=== PATIENT | male | born 1950 | race Caucasian/White ===

== ENCOUNTER → 2017-07-08 | Outpatient (CLI) | payer OTHER ==
--- NOTE | 2017-07-08 09:12 | MR ---
EXAMINATION TYPE: MR angio head wo con DATE OF EXAM: 07/08/2017 8:32 AM COMPARISON: CT scan of the brain dated 05/29/2017. HISTORY: Cerebral aneurysm TECHNIQUE: Time of flight images focusing on the [place] of [place] were performed without contrast. FINDINGS: Right vertebral artery is mildly dominant. The right posterior communicating arteries visua lized. The left is not. Both ophthalmic arteries are visualized. There is normal arborization of the middle cerebral arteries. There is no sizable aneurysm. IMPRESSION: NORMAL MRI OF THE [place] OF [place].
--- NOTE | 2017-07-08 09:17 | MR ---
EXAMINATION TYPE: MR brain wo/w con DATE OF EXAM: 07/08/2017 8:51 AM COMPARISON: Previous CT scan of the brain dated 05/29/2017. HISTORY: Cerebral aneurysm / R94.02 Abnormal findings TECHNIQUE: Multiplanar, multiecho imaging of the brain was obtained with and without intravenous adm inistration of 7.5 mL intravenous Gadavist. FINDINGS: Midline structures are unremarkable. There is a normal craniocervical junction. Echoplanar diffusion imaging is normal. The orbits are unremarkable. There is no evidence of a CP angle mass lesion. There are scattered high signal FLAIR lesions in the subcortical white matter of both cerebral hemisp heres. These number approximately 7 in number. There is a questionable lesion in the right side of th e jane. This may, however, the artifactual. The largest lesion is in the parietal lobe on the left an d measures approximately 7.4 mm. There is no mass effect, midline shift or intracranial blood. Following the intravenous administration of gadolinium, I do not see evidence of abnormal enhancement . IMPRESSION: 1. NO ACUTE INTRACRANIAL ABNORMALITY. 2. SCATTERED, NONSPECIFIC HIGH SIGNAL FLAIR LESIONS IN THE SUBCORTICAL WHITE MATTER OF BOTH CEREBRAL HEMISPHERES. A DIFFERENTIAL DIAGNOSIS INCLUDES SMALL VESSEL DISEASE, DEMYELINATION, MIGRAINE HEADACHE S, HYPERTENSION AND LYME'S DISEASE.
== END | disposition home or self-care (01) ==
LOC: RADMRIMAIN 08:02
PROVIDERS: ATTEND Family Medicine
DX: L98.9 Disorder of the skin and subcutaneous tissue, unspecified (principal)
CPT/HCPCS: 70544; 70553; A9581

== ENCOUNTER 2019-12-16 08:45 | Emergency (ER) | payer OTHER ==
[2019-12-16 08:50] VITALS: RESP 18; TEMP 97.9
--- NOTE | 2019-12-16 08:59 | ED ---
General Adult HPI - General Chief complaint: Shortness of Breath Stated complaint: QUINCY Time Seen by Provider: 12/16/19 08:53 Source: patient Mode of arrival: ambulatory Limitations: no limitations - History of Present Illness Initial comments: Dictation was produced using [employer] dictation software. please excuse any grammatical, word or spelling errors. This patient was cared for during a federal and state declared state of emergency secondary to Covid 19 Chief Complaint: 69-year-old male with no significant comorbidities presents today with episode of dyspnea. History of Present Illness: 69-year-old 9 presents today with an episode of dyspnea. Patient states that for in the morning he felt like he couldn't breathe. He got up went out to get fresh air. Patient states he's been a poor sleeper. He states that however he has not had an episode like this recently patient states he feels well now. He has no pain complaints. He has remote history of smoking. Denies any history of blood clots. Patient has not taken medications. Patient has no pain complaints. The ROS documented in this emergency department record has been reviewed and confirmed by me. Those systems with pertinent positive or negative responses h ave been documented in the HPI. All other systems are other negative and/or noncontributory. PHYSICAL EXAM: General Impression: Alert and oriented x3, not in acute distress HEENT: Normocephalic atraumatic, extra-ocular movements intact, pupils equal and reactive to light bilaterally, mucous membranes moist. Cardiovascular: Heart regular rate and rhythm Chest: Able to complete full sentences, no retractions, no tachypnea, lungs clear to auscultation Abdomen: abdomen soft, non-tender, non-distended, no organomegaly Musculoskeletal: Pulses present and equal in all extremities, no peripheral ed ana maría, no tenderness to palpation over the calf, popliteal area or medial thigh Motor: no focal deficits noted Neurological: CN II-XII grossly intact, no focal motor or sensory deficits noted Skin: Intact with no visualized rashes Psych: Normal affect and mood ED course: 69-year-old malesignificant comorbidities presents today with chief complaint dyspnea. He states that the dyspnea was short-lived and occurred at 4 AM this morning. He has been feeling well otherwise vital signs upon arrival a re within acceptable limits. Patient is not hypoxic. He is not hypotensive or tachycardic. His lungs are clear to auscultation bilaterally. Patient's physical examination is benign. Does not appear to be any sort of acute distress. Laboratory evaluation obtained. CBC, metabolic panel, troponin , beta nitric peptide is unremarkable. Chest x-ray is nonacute. Patient reevaluated at bedside in stable medical condition. Patient clear for discharge advised to follow-up with primary care physician. - Related Data Home Medications Medication Instructions Recorded Confirmed Aspirin 81 mg PO DAILY 06/10/14 06/10/14 LORazepam [Ativan] 1 tab PO DIRECTED PRN 06/10/14 06/10/14 Allergies Allergy/AdvReac Type Severity Reaction Status Date / Time No Known Allergies Allergy Verified 12/16/19 08:50 Review of Systems ROS Statement: Those systems with pertinent positive or pertinent negative responses have been documented in the HPI. ROS Other: All systems not noted in ROS Statement are negative. Past Medical History Past Medical History: GERD/Reflux History of Any Multi-Drug Resistant Organisms: None Reported Past Surgical History: No Surgical Hx Reported Past Psychological History: Anxiety, Panic Disorder Smoking Status: Former smoker Past Alcohol Use History: Occasional Past Drug Use History: None Reported General Exam Limitations: no limitations Course Vital Signs 12/16/19 12/16/19 08:46 10:39 Temperature 97.9 F Pulse Rate 86 71 Respiratory 18 18 Rate Blood Pressure 141/71 135/85 O2 Sat by Pulse 97 97 Oximetry Medical Decision Making - Lab Data Result diagrams: 12/16/19 09:22 12/16/19 09:22 Lab Results 12/16/19 12/16/19 12/16/19 Range/Units 09:22 09:22 09:22 WBC 6.2 (3.8-10.6) k/uL RBC 4.89 (4.30-5.90) m/uL Hgb 14.5 (13.0-17.5) gm/dL Hct 43.8 (39.0-53.0) % MCV 89.6 (80.0-100.0) fL MCH 29.7 (25.0-35.0) pg MCHC 33.1 (31.0-37.0) g/dL RDW 12.7 (11.5-15.5) % Plt Count 254 (150-450) k/uL Neutrophils % 77 % Lymphocytes % 17 % Monocytes % 4 % Eosinophils % 1 % Basophils % 0 % Neutrophils # 4.8 (1.3-7.7) k/uL Lymphocytes # 1.0 (1.0-4.8) k/uL Monocytes # 0.3 (0-1.0) k/uL Eosinophils # 0.1 (0-0.7) k/uL Basophils # 0.0 (0-0.2) k/uL Sodium 138 (137-145) mmol/L Potassium 4.1 (3.5-5.1) mmol/L Chloride 104 (98-107) mmol/L Carbon Dioxide 26 (22-30) mmol/L Anion Gap 8 mmol/L BUN 16 (9-20) mg/dL Creatinine 0.89 (0.66-1.25) mg/dL Est GFR (CKD-EPI)AfAm >90 (>60 ml/min/1.73 sqM) Est GFR (CKD-EPI)NonAf 88 (>60 ml/min/1.73 sqM) Glucose 145 H (74-99) mg/dL Calcium 8.8 (8.4-10.2) mg/dL Total Bilirubin 0.7 (0.2-1.3) mg/dL AST 23 (17-59) U/L ALT 15 (4-49) U/L Alkaline Phosphatase 67 (38-126) U/L Troponin I <0.012 (0.000-0.034) ng/mL NT-Pro-B Natriuret Pep pg/mL Total Protein 7.2 (6.3-8.2) g/dL Albumin 3.9 (3.5-5.0) g/dL 12/16/19 Range/Units 09:22 WBC (3.8-10.6) k/uL RBC (4.30-5.90) m/uL Hgb (13.0-17.5) gm/dL Hct (39.0-53.0) % MCV (80.0-100.0) fL MCH (25.0-35.0) pg MCHC (31.0-37.0) g/dL RDW (11.5-15.5) % Plt Count (150-450) k/uL Neutrophils % % Lymphocytes % % Monocytes % % Eosinophils % % Basophils % % Neutrophils # (1.3-7.7) k/uL Lymphocytes # (1.0-4.8) k/uL Monocytes # (0-1.0) k/uL Eosinophils # (0-0.7) k/uL Basophils # (0-0.2) k/uL Sodium (137-145) mmol/L Potassium (3.5-5.1) mmol/L Chloride (98-107) mmol/L Carbon Dioxide (22-30) mmol/L Anion Gap mmol/L BUN (9-20) mg/dL Creatinine (0.66-1.25) mg/dL Est GFR (CKD-EPI)AfAm (>60 ml/min/1.73 sqM) Est GFR (CKD-EPI)NonAf (>60 ml/min/1.73 sqM) Glucose (74-99) mg/dL Calcium (8.4-10.2) mg/dL Total Bilirubin (0.2-1.3) mg/dL AST (17-59) U/L ALT (4-49) U/L Alkaline Phosphatase (38-126) U/L Troponin I (0.000-0.034) ng/mL NT-Pro-B Natriuret Pep 63 pg/mL Total Protein (6.3-8.2) g/dL Albumin (3.5-5.0) g/dL Disposition Clinical Impression: Dyspnea Disposition: HOME SELF-CARE Condition: Good Instructions (If sedation given, give patient instructions): Dyspnea (ED) Is patient prescribed a controlled substance at d/c from ED?: No Referrals: Eric Johnston Jr, DO [Family Provider] - 1-2 days Time of Disposition: 10:50
[2019-12-16 09:52] LABS: Basophils % (A) 0 %; Eosinophils # (A) 0.1 k/uL (0-0.7); Eosinophils % (A) 1 %; HCT 43.8 % (39.0-53.0); HGB 14.5 gm/dL (13.0-17.5); Lymphocytes % (A) 17 %; MCH 29.7 pg (25.0-35.0); MCHC 33.1 g/dL (31.0-37.0); MCV 89.6 fL (80.0-100.0); Mean Platelet Volume 6.9; Monocytes # (A) 0.3 k/uL (0-1.0); Monocytes % (A) 4 %; Neutrophils # (A) 4.8 k/uL (1.3-7.7); Neutrophils % (A) 77 %; Platelet Count 254 k/uL (150-450); RBC 4.89 m/uL (4.30-5.90); RDW 12.7 % (11.5-15.5); WBC 6.2 k/uL (3.8-10.6)
--- NOTE | 2019-12-16 09:55 | XR ---
EXAMINATION TYPE: XR chest 2V DATE OF EXAM: 12/16/2019 COMPARISON: 06/10/2014 HISTORY: 69 year-old male shortness of breath, dyspnea TECHNIQUE: PA and lateral views FINDINGS: The cardiomediastinal silhouette, aorta, and pulmonary vasculature are within normal limits. Lungs an d pleural spaces are clear. IMPRESSION: No acute cardiopulmonary process.
[2019-12-16 10:06] LABS: ALT 15 U/L (4-49); AST 23 U/L (17-59); African American GFR (CKD) >90 (>60 ml/min/1.73 sqM); Albumin 3.9 g/dL (3.5-5.0); Alkaline Phosphatase 67 U/L (38-126); Anion Gap 8 mmol/L; Blood Urea Nitrogen 16 mg/dL (9-20); Calcium 8.8 mg/dL (8.4-10.2); Carbon Dioxide 26 mmol/L (22-30); Chloride 104 mmol/L (98-107); Glucose 145 mg/dL (74-99); Non-African American GFR(CKD) 88 (>60 ml/min/1.73 sqM); Potassium 4.1 mmol/L (3.5-5.1); Sodium 138 mmol/L (137-145); Total Bilirubin 0.7 mg/dL (0.2-1.3); Total Protein 7.2 g/dL (6.3-8.2)
[2019-12-16 11:01] VITALS: BP 130/80; PULSE 72
== END 2019-12-16 10:57 | disposition home or self-care (01) ==
LOC: EC 08:45
DX: R06.00 Dyspnea, unspecified (principal); F41.9 Anxiety disorder, unspecified; Z79.899 Other long term (current) drug therapy; Z87.891 Personal history of nicotine dependence
CPT/HCPCS: 36415; 71046; 80053; 83880; 84484; 85025; 93005; 99285

== ENCOUNTER 2020-11-12 08:02 | Day surgery (SDC) | payer OTHER ==
[2020-11-10 11:01] VITALS: BMI 27.3
[~2020-11-12 08:02] MED LIST: LACTATED RINGERS 1,000 ML IV SCH
[2020-11-12 08:34] VITALS: TEMP 97.8
[2020-11-12] MEDS ORDERED: LIDOCAINE 1% (10MG/ML) FOR IV START INTRADERMA ONE (08:34)
[2020-11-12] MEDS ORDERED: PROPOFOL 10 MG/ML 20 ML VIAL IV ONE (09:22)
[2020-11-12 09:45] VITALS: PULSE 68
--- NOTE | 2020-11-12 09:51 | P.PCN ---
Date of Procedure: 11/12/20 Description of Procedure: BRIEF HISTORY: Patient is a 70-year-old male presenting for outpatient colonoscopy for screening for malignant neoplasm of the colon. Patient reports last colonoscopy over 10 years ago. No change in bowel habits. He does report occasional bright red blood per rectum. Bleeding is usually in association with straining with bowel movements. Patient is unclear about his family history, he states he may have a family history of colon cancer in his uncle otherwise no immediate family members with colon cancer. PROCEDURE PERFORMED: Colonoscopy with polypectomy. PREOPERATIVE DIAGNOSIS: Screening for malignant neoplasm of the colon, the patient was last colonoscopy over 10 years ago. ESTIMATED BLOOD LOSS: Minimal. IV sedation per Anesthesia. PROCEDURE: After informed consent was obtained, the patient, was brought into the endoscopy unit. IV sedation was administered by Anesthesia under continuous monitoring. Digital rectal examination was normal. Initially the Olympus CF-190 flexible video colonoscope was then inserted in the rectum, gradually advanced into the cecum without any difficulty. Careful examination was performed as the scope was gradually being withdrawn. Ileocecal valve and the appendiceal orifice were visualized and appeared normal. Prep was excellent. Mucosa of the cecum, ascending colon, transverse colon, descending colon, sigmoid colon, and rectum appeared normal. A diminutive 2 mm: Polyp was removed from the transverse colon with cold forcep polypectomy. A few scattered diverticula noted in the sigmoid colon. Retroflexion was performed in the rectum and no lesions were seen, moderate internal hemorrhoids noted. The patient tolerated the procedure well. IMPRESSION: Diminutive transverse colon polyp removed with cold forcep polypectomy. Mild sigmoid diverticulosis. Internal hemorrhoids. RECOMMENDATIONS: Findings of this examination were discussed with the patient .and his family. Okay to resume diet. Okay to resume medications. Await pathology from polypectomy. Recommend repeat colonoscopy in 7 years for colon polyp pending pathology from polypectomy.
[2020-11-12 10:01] VITALS: BP 125/86; RESP 16
== END 2020-11-12 10:15 | disposition home or self-care (01) ==
LOC: ORWHC2ENDO 08:02
PROVIDERS: ATTEND Internal Medicine
DX: Z12.11 Encounter for screening for malignant neoplasm of colon (principal); D12.3 Benign neoplasm of transverse colon; K57.30 Diverticulosis of large intestine without perforation or abscess without bleeding; K64.8 Other hemorrhoids; K62.5 Hemorrhage of anus and rectum; K21.9 Gastro-esophageal reflux disease without esophagitis; Z87.891 Personal history of nicotine dependence; Z98.890 Other specified postprocedural states; M19.90 Unspecified osteoarthritis, unspecified site; Z79.82 Long term (current) use of aspirin; Z79.899 Other long term (current) drug therapy
CPT/HCPCS: 88305; 45380; J2704; 45385

== ENCOUNTER → 2021-01-20 | Outpatient (CLI) | payer MEDICARE ==
--- NOTE | 2021-01-21 04:10 | MR ---
EXAMINATION TYPE: MR foot LT wo con DATE OF EXAM: 01/20/2021 COMPARISON: None HISTORY: Soft tissue mass/Growth on Left Great toe. Been there 20 years. Multiplanar multiecho imaging of the right foot was obtained without contrast. The metatarsals are intact. The toes appear intact. I see no bony destructive process. There is no ev idence of a fracture. Hindfoot is not included on this exam. There is a 9 mm exophytic appearing mass on the anterior dorsal aspect of the tuft of the distal phalanx of the big toe. This is at the nailb ed and has a low signal on the T1 images. This is also fairly low signal on the T2 images. This shoul d be correlated with the physical exam. This could be some overgrowth of the nailbed. I see no destru ction of the tuft of the distal phalanx. IMPRESSION: Low signal superficial lesion on the tip of the big toe at the nailbed that could be some nailbed ove rgrowth. No evidence of bony involvement.
== END | disposition home or self-care (01) ==
LOC: RADMRIMAIN 18:08
PROVIDERS: ATTEND Podiatrist Foot & Ankle Surgery
DX: L98.9 Disorder of the skin and subcutaneous tissue, unspecified (principal)

== ENCOUNTER 2022-11-15 09:53 | Day surgery (SDC) | payer MEDICARE, OTHER ==
[2022-11-11 10:08] VITALS: BMI 28.1
[~2022-11-15 09:53] MED LIST changes: +LIDOCAINE 1% (10MG/ML) FOR IV START INTRADERMA PRN
[2022-11-15 10:16] VITALS: TEMP 98.3
[2022-11-15] MEDS ORDERED: PROPOFOL 10 MG/ML 20 ML VIAL IV ONE (10:29)
[2022-11-15] MEDS ORDERED: LIDOCAINE 2% INJ 20 MG/ML (2 ML VIAL) ONE (10:29)
--- NOTE | 2022-11-15 10:40 | P.PCN ---
Date of Procedure: 11/15/22 Procedure(s) Performed: BRIEF HISTORY: Patient is a 72-year-old, pleasant, white male scheduled for an upper endoscopy as a part of evaluation of history of GERD and intermittent dysphagia to solids for the last 1 year duration. PROCEDURE PERFORMED: Esophagogastroduodenoscopy with balloon dilation. PREOPERATIVE DIAGNOSIS: Intermittent dysphagia to solids of 1 year duration and long-standing history of GERD. IV sedation per anesthesia. PROCEDURE: After informed consent was obtained, the patient was brought into the endoscopy unit. IV sedation was administered by Anesthesia under continuous monitoring. Initially the Olympus GIF-140 video endoscope was inserted into the mouth. Esophagus intubated without any difficulty. It was gradually advanced into the stomach and duodenum and carefully examined. The bulb and the second part of the duodenum appeared normal. The scope at this time was withdrawn to the stomach, adequately insufflated with air, and upon careful examination, mucosa of the antrum, body, cardia and the fundus appeared normal. The scope was then withdrawn into the esophagus. The GE junction was located at 39 cm from the incisors. There was a distal esophageal stricture identified. There were linear erosions and circumferential erythema the GE junction consistent with LA grade B reflux esophagitis. At this time I proceeded with balloon dilation of the distal esophageal stricture using 12-15 mm TTS balloon in a sequential fashion for that he seconds. Following the dilation there was some oozing identified at the site of dilation. The rest of the esophagus appeared normal. The patient tolerated the procedure well. IMPRESSION: 1. Distal esophageal stricture status post balloon dilation using 12-15 mm TTS balloon as described above. 2. Linear erosions in the distal esophagus consistent with LA grade B reflux esophagitis. RECOMMENDATIONS: The findings of this examination were discussed with the patient well as her family. He was advised to follow with the biopsy results.. Remain on a clear liquid diet for lunch today. Start on omeprazole 20 mg daily and follow antireflux measures. Follow up in office in 6 weeks
[2022-11-15 11:02] VITALS: BP 133/78; PULSE 68; RESP 18
== END 2022-11-15 11:25 | disposition home or self-care (01) ==
LOC: ORWHC2ENDO 09:53
PROVIDERS: ATTEND Internal Medicine Gastroenterology
DX: K22.2 Esophageal obstruction (principal); K21.9 Gastro-esophageal reflux disease without esophagitis
CPT/HCPCS: 43249; J2704; J2001; C1726

== ENCOUNTER 2023-10-04 08:26 | Day surgery (SDC) | payer OTHER ==
[2023-10-03 10:56] VITALS: BMI 27.3
[2023-10-04] MEDS: LACTATED RINGERS 1,000 ML IV SCH (11:03)
[2023-10-04 11:17] VITALS: RESP 16; TEMP 97.9
[2023-10-04] MEDS ORDERED: LIDOCAINE 1% INJ 10MG/ML (20 ML MDV) ONE (12:08)
[2023-10-04] MEDS ORDERED: PROPOFOL 10 MG/ML 20 ML VIAL IV ONE (12:08)
--- NOTE | 2023-10-04 12:17 | P.PCN ---
Date of Procedure: 10/04/23 Procedure(s) Performed: BRIEF HISTORY: Patient is a 73-year-old, pleasant, white male scheduled for an upper endoscopy for evaluation of dysphagia and GERD.. PROCEDURE PERFORMED: Esophagogastroduodenoscopy with dilation. PREOPERATIVE DIAGNOSIS: Dysphagia/GERD. IV sedation per anesthesia. PROCEDURE: After informed consent was obtained, the patient was brought into the endoscopy unit. IV sedation was administered by Anesthesia under continuous monitoring. Initially the Olympus GIF-140 video endoscope was inserted into the mouth. Esophagus intubated without any difficulty. It was gradually advanced into the stomach and duodenum and carefully examined. The bulb and the second part of the duodenum appeared normal. The scope at this time was withdrawn to the stomach, adequately insufflated with air, and upon careful examination, mucosa of the antrum, body, cardia and the fundus appeared normal. The scope was then withdrawn into the esophagus. small hiatal hernia.The GE junction was located at 39 cm from the incisors. there was distal esophageal stricture identified and this was dilated using 15 and 16.5 mm TTS balloon in a sequential fashion for 30 seconds.Therest of the esophagus appeared normal. There were no erosions or ulcerations seen and the patient tolerated the procedure well. IMPRESSION: 1. Distal esophageal stricture status post balloon dilation using 15 and 16.5 mm TTS balloon as above. 2. Small hiatal hernia. RECOMMENDATIONS: The findings of this examination were discussed with the patient as well as his family. He was advised to continue with omeprazole 20 mg daily and follow antireflux measures. Clear liquids for 2 hours. Follow up in office in 6 months.
[2023-10-04 13:25] VITALS: BP 168/81; PULSE 76
== END 2023-10-04 13:09 | disposition home or self-care (01) ==
LOC: ORWHC2ENDO 08:26
PROVIDERS: ATTEND Internal Medicine Gastroenterology
DX: K22.2 Esophageal obstruction (principal); K21.9 Gastro-esophageal reflux disease without esophagitis; K44.9 Diaphragmatic hernia without obstruction or gangrene; G47.33 Obstructive sleep apnea (adult) (pediatric); F41.9 Anxiety disorder, unspecified; F43.10 Post-traumatic stress disorder, unspecified; M19.90 Unspecified osteoarthritis, unspecified site; Z79.899 Other long term (current) drug therapy
CPT/HCPCS: 43249; J2001; J2704; C1726

== ENCOUNTER → 2024-07-18 | Outpatient (CLI) | payer OTHER ==
--- NOTE | 2024-07-18 10:31 | CT ---
EXAMINATION TYPE: CT brain wo con CT DLP: 1106 mGycm, Automated exposure control for dose reduction was used. DATE OF EXAM: 07/18/2024 9:41 AM COMPARISON: CT brain 05/29/2017, MRI brain 07/08/2017, MRA head 07/08/2017 CLINICAL INDICATION:Male, 74 years old with history of R41.3 OTHER AMNESIA, memory loss TECHNIQUE: Brain: Multiple axial CT images of the brain were obtained without IV contrast. . Coronal and sagitta l reformats reviewed. FINDINGS: Brain: Extra-axial spaces: No abnormal extra-axial fluid collections. Ventricular system: Within normal limits Cerebral parenchyma: Age-appropriate cerebral volume loss. No acute intraparenchymal hemorrhage or ma ss effect. The [place]-white junction is well differentiated. Scattered hypoattenuating areas are seen within the white matter. Cerebellum: Remote hypodense right cerebellar lacunar injury with knee CSF attenuation. Mass effect: No evidence of midline shift. Intracranial vasculature: Atherosclerotic calcifications of the intracranial vessels. Soft tissues: Normal. Calvarium/osseous structures: No depressed skull fracture. Paranasal sinuses and mastoid air cells: Clear Visualized orbits: Orbital contents are intact. IMPRESSION: 1. No acute intracranial process. 2. 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 [facility], , 07/18/2024 10:29 AM
== END | disposition home or self-care (01) ==
LOC: RADCTMAIN 09:19
PROVIDERS: ATTEND Psychiatry & Neurology Neurology
DX: R41.3 Other amnesia (principal); R90.82 White matter disease, unspecified
CPT/HCPCS: 70450

== ENCOUNTER 2024-09-17 07:15 | Day surgery (SDC) | payer MEDICARE, OTHER ==
[2024-09-16 10:50] VITALS: BMI 23.5
[~2024-09-17 07:15] MED LIST changes: -LACTATED RINGERS 1,000 ML IV SCH
[2024-09-17] MEDS: LACTATED RINGERS 1,000 ML IV SCH (07:45)
[2024-09-17] MEDS: IV FLUID CONTINUATION 1,000 ML IV ONE (07:46)
[2024-09-17 07:48] VITALS: TEMP 98.2
[2024-09-17] MEDS ORDERED: LIDOCAINE 2% (PF) 20 MG/ML 5 ML VIAL ONE (08:20)
[2024-09-17] MEDS ORDERED: PROPOFOL 10 MG/ML 20 ML VIAL IV ONE (08:20)
--- NOTE | 2024-09-17 08:41 | P.PCN ---
Date of Procedure: 09/17/24 Procedure(s) Performed: Brief history: Patient is a pleasant 74-year-old white male scheduled for an elective upper endoscopy as well as colonoscopy as a part of evaluation of intermittent dysphagia to solids and screening for history of colon polyps. Last colonoscopy was 4 years ago. Also has been complaining of intermittent right lower quadrant abdominal pain and about 2 months ago went to the emergency room and had a CT of the abdomen and pelvis done that showed some mesenteric adenitis. Procedure performed: Esophagogastroduodenoscopy with biopsy Colonoscopy Preoperative diagnosis: GERD/intermittent dysphagia to solids Screening for history of colon polyps/intermittent right lower quadrant a bdominal pain Anesthesia: MAC Procedure: After informed consent was obtained from the patient was brought into the endoscopy unit and IV sedation was administered by anesthesia under continuous monitoring. Initially upper endoscopy was done. The Olympus GF 160 video endoscope was inserted inserted into the mouth and esophagus intubated without any difficulty and was gradually advanced into the stomach and duodenum and carefully examined. The bulb and second part of the duodenum had multiple superficial duodenal erosions or ulcerations and biopsies were done from this area. The scope was then withdrawn into the stomach adequately insufflated with air and upon careful examination the antrum had mild gastritis and biopsies were done from this area. Mucosa body, cardia and fundus appeared normal. The scope was then withdrawn into the esophagus. The GE junction was located at 40 cm to the incisors. It appeared regular superficial erosions consistent with LA grade B reflux esophagitis. . Rest of the esophagus appeared normal. Patient tolerated the procedure well. At this time the patient continued to remain sedation. Initial digital rectal examination was normal. Olympus CF 160 video colonoscope was then inserted into the rectum and gradually advanced to the cecum without any difficulty. Careful examination was performed as the scope was gradually being withdrawn. The prep was excellent. Terminal ileum appeared normal. The cecum, ascending colon, transverse colon, descending colon, sigmoid colon and rectum appeared normal. Retroflexion was performed in the rectum and no lesions were noted. Scattered sigmoid diverticulosis. Patient tolerated the procedure well. Impression: 1. Upper endoscopy revealed linear erosions in the distal esophagus consistent with LA grade B reflux esophagitis, mild antral gastritis and multiple superficial duodenal erosions or ulcers 2. Colonoscopy revealed scattered sigmoid diverticulosis but no evidence of colorectal neoplasia. Recommendations: Findings of this examination were discussed with the patient as well as his family. He was advised to increase omeprazole to 20 mg twice daily and follow antireflux measures. Recommend repeat screening colonoscopy in 10 years..
[2024-09-17 08:48] VITALS: RESP 16
[2024-09-17 09:00] VITALS: BP 111/71; PULSE 79
== END 2024-09-17 10:00 | disposition home or self-care (01) ==
LOC: ORWHC2ENDO 07:15
PROVIDERS: ATTEND Internal Medicine Gastroenterology
DX: K29.50 Unspecified chronic gastritis without bleeding (principal); K21.00 Gastro-esophageal reflux disease with esophagitis, without bleeding; K26.9 Duodenal ulcer, unspecified as acute or chronic, without hemorrhage or perforation; K29.80 Duodenitis without bleeding; K57.30 Diverticulosis of large intestine without perforation or abscess without bleeding; M19.90 Unspecified osteoarthritis, unspecified site; F41.9 Anxiety disorder, unspecified; F43.10 Post-traumatic stress disorder, unspecified; Z79.899 Other long term (current) drug therapy; Z86.0100 Personal history of colon polyps, unspecified
CPT/HCPCS: 88305; 45378; 43239; J2704; J2003

== ENCOUNTER → 2024-10-31 | Outpatient (CLI) | payer OTHER ==
[2024-10-31 15:09] LABS: HCT 41.5 % (39.6-50.0); HGB 13.7 g/dL (13.0-17.0); MCH 29.4 pg (27.0-32.0); MCV 89.1 FL (80.0-97.0); Mean Platelet Volume 9.4 FL (9.5-12.2); NRBC Per 100 WBC 0 X 10*3/uL (0.00-0.01); Platelet Count 283 X 10*3/uL (140-440); RBC 4.66 X 10*6/uL (4.40-5.60); RDW 14.6 % (11.5-14.5); WBC 9.39 X 10*3/uL (4.50-10.00)
[2024-10-31 15:53] LABS: NT-Pro-B-Type Natriuretic Pept 212 pg/mL (0-125)
[2024-10-31 15:54] LABS: ALT 18 U/L (10-49); AST 27 U/L (14-35); Albumin 3.9 g/dL (3.8-4.9); Albumin/Globulin Ratio 1.18 Ratio (1.60-3.17); Alkaline Phosphatase 80 U/L (41-126); Calcium 9.2 mg/dL (8.7-10.3); Carbon Dioxide 24.5 mmol/L (21.6-31.8); Chloride 105 mmol/L (96-109); Chol/HDL Ratio 4.19 Ratio; Globulin 3.3 g/dL (1.6-3.3); Glucose 94 mg/dL (70-110); LDL Cholesterol,Calculated 120.8 mg/dL (0.0-131.0); Potassium 4.2 mmol/L (3.5-5.5); Sodium 141 mmol/L (135-145); Total Bilirubin 0.7 mg/dL (0.3-1.2); Total Protein 7.2 g/dL (6.2-8.2)
== END | disposition home or self-care (01) ==
LOC: LABWHC1 09:27
PROVIDERS: ATTEND Student in an Organized Health Care Education/Training Program
DX: D72.9 Disorder of white blood cells, unspecified (principal); R79.89 Other specified abnormal findings of blood chemistry; I50.9 Heart failure, unspecified; E11.9 Type 2 diabetes mellitus without complications; E78.5 Hyperlipidemia, unspecified; E03.9 Hypothyroidism, unspecified
CPT/HCPCS: 36415; 80053; 80061; 83036; 83880; 84443; 85027; 86141